=== PATIENT | female | born 1975 | race Caucasian/White ===

== ENCOUNTER 2025-07-10 08:23 | Outpatient (CLI) | payer OTHER, SELFPAY ==
--- NOTE | ~2025-07-10 | CT_ITS ---
EXAM/PROCEDURE: CT knee LT wo con HISTORY: closed displaced comminuted fracture of left patella COMPARISON: None available. TECHNIQUE: Fracture FINDINGS: Minimally comminuted and slightly displaced fracture of the inferior pole of the patella extends transversely in a slightly oblique manner, well seen on images 21 through 23 of series 601. No other fracture seen. Small joint effusion present. Mild subcutaneous edematous changes present anteriorly along the infrapatellar tendon. No obvious disruption of the infrapatellar tendon or patellar alter present. No pathologic lesion seen. No radiopaque foreign bodies. IMPRESSION: Minimally comminuted and slightly displaced fracture of the inferior pole of the patella. No patella sonia or other fracture identified. Reviewed, dictated and finalized at location A. 'S ADVISER IMPRESSION: Minimally comminuted and slightly displaced fracture of the inferior pole of th e patella. No patella sonia or other fracture identified.
== END 2025-07-10 08:24 | disposition home or self-care (01) ==
LOC: MICIMG 08:25
DX: S82.042A Displaced comminuted fracture of left patella, initial encounter for closed fracture (principal); X58.XXXA Exposure to other specified factors, initial encounter
CPT/HCPCS: 73700